=== PATIENT | female | born 1990 | race African-American/Black ===

== ENCOUNTER 2019-08-25 22:24 | Emergency (ER) | payer MEDICAID ==
[~2019-08-25] VITALS: Ht 170.2 cm; Wt 53.0 kg
[2019-08-25] MEDS ORDERED: ACETAMINOPHEN 325MG TABLET PO ONE (23:15)
[2019-08-26 00:06] VITALS: BP 132/82
== END 2019-08-26 00:08 | disposition home or self-care (01) ==
LOC: ER 22:24
DX: J11.1 Influenza due to unidentified influenza virus with other respiratory manifestations (principal); M79.10 Myalgia, unspecified site; R05 Cough; R06.02 Shortness of breath
CPT/HCPCS: 87804; 99283

== ENCOUNTER 2019-08-27 16:59 | Emergency (ER) | payer MEDICAID ==
[~2019-08-27] VITALS: Ht 170.2 cm; Wt 60.0 kg
[2019-08-27] MEDS ORDERED: LORAZEPAM 0.5MG TABLET PO ONE (19:45)
[2019-08-27 21:20] VITALS: BP 122/68
== END 2019-08-27 21:21 | disposition home or self-care (01) ==
LOC: ER 16:59
DX: J11.1 Influenza due to unidentified influenza virus with other respiratory manifestations (principal); J40 Bronchitis, not specified as acute or chronic
CPT/HCPCS: 71045; 87804; 99284

== ENCOUNTER 2019-08-29 22:52 | Emergency (ER) | payer MEDICAID ==
[~2019-08-29] VITALS: Ht 180.3 cm; Wt 59.0 kg
[2019-08-29 22:54] VITALS: BP 142/110
== END 2019-08-30 02:06 | disposition left against medical advice (07) ==
LOC: ER 23:14
DX: F41.9 Anxiety disorder, unspecified (principal); Z53.21 Procedure and treatment not carried out due to patient leaving prior to being seen by health care provider